=== PATIENT | male | born 1980 | race Caucasian/White ===

== ENCOUNTER 2016-09-13 08:24 | Day surgery (SDC) | payer BC, OTHER ==
[2016-09-12 14:28] VITALS: BMI 26.2
[2016-09-13] MEDS ORDERED: PROPOFOL 20 ML ONE ×3 (08:59→09:00)
[2016-09-13] MEDS ORDERED: LIDOCAINE HCL 2% 100 MG/5 ML DISP.SYRIN ONE (09:04)
[2016-09-13 09:46] VITALS: TEMP 97.5
[2016-09-13 10:18] VITALS: PULSE 62
[2016-09-13 14:44] VITALS: BP 96/64
--- NOTE | 2016-09-19 11:19 | PATH ---
Surgical Pathology Report Patient Name: SRINIVASAN PUCKETT [facility]. Rec. #: [id number] /Age/Gender: 1980 (Age: 35) / M Account: [id number] Location: U-ENDOSCOPY Taken: 09/13/2016 Received: 09/13/2016 Reported: 09/14/2016 Physicians: Judah Fuentes D.O. Specimen(s) Received A: BX RIGHT COLON & CECUM B: BX TRANSVERSE COLON C: BX DESCENDING COLON D: BX SIGMOID COLON E: BX SIGMOID POLYP F: BX RECTUM Clinical History Ulcerative colitis surveillance Ulcerative colitis, hemorrhoids Final Diagnosis A. COLON, CECUM AND RIGHT, BIOPSY: COLONIC MUCOSA WITH MILD CHRONIC COLITIS WITH MILD ARCHITECTURAL DISTORTION. NO EVIDENCE OF GRANULOMATA OR DYSPLASIA. B. COLON, TRANSVERSE, BIOPSY: COLONIC MUCOSA WITH FOCALLY ACTIVE MILD CHRONIC COLITIS WITH MILD ARCHITECTURAL DISTORTION NO EVIDENCE OF GRANULOMATA OR DYSPLASIA. C. COLON, DESCENDING, BIOPSY: COLONIC MUCOSA WITH FOCALLY ACTIVE MILD CHRONIC COLITIS WITH FOCAL CRYPTITIS AND MILD ARCHITECTURAL DISTORTION. NO EVIDENCE OF GRANULOMATA OR DYSPLASIA. D. COLON, SIGMOID, BIOPSY: COLONIC MUCOSA WITH FOCALLY ACTIVE MILD TO MODERATE CHRONIC COLITIS WITH MILD ARCHITECTURAL DISTORTION. NO EVIDENCE OF GRANULOMATA OR DYSPLASIA. E. COLON, SIGMOID, POLYP, BIOPSY: FRAGMENTS OF HYPERPLASTIC POLYP. F. RECTUM, BIOPSY: RECTAL MUCOSA WITH FOCALLY ACTIVE MODERATE CHRONIC PROCTITIS WITH MILD TO MODERATE ARCHITECTURAL DISTORTION. NO EVIDENCE OF GRANULOMATA OR DYSPLASIA. Electronically Signed Kale Mays M.D. Gross Description A. Received in formalin, labeled "biopsy right colon and cecum" are 9 vargas, irregular portions of soft tissue ranging from 0.1-0.5 cm in greatest dimension. The specimens are submitted in toto in one cassette. B. Received in formalin, labeled "biopsy transverse colon" are 8 vargas, irregular portions of soft tissue ranging from 0.1-0.4 cm in greatest dimension. The specimens are submitted in toto in one cassette. C. Received in formalin, labeled "biopsy descending colon" are 8 vargas, irregular portions of soft tissue ranging from 0.1-0.4 cm in greatest dimension. The specimens are submitted in toto in one cassette. D. Received in formalin, labeled "biopsy sigmoid colon" are 12 vargas, irregular portions of soft tissue ranging from 0.1-0.4 cm in greatest dimension. The specimens are submitted in toto in one cassette. E. Received in formalin, labeled "biopsy sigmoid polyp" are 2 vargas, irregular portions of soft tissue measuring 0.2 and 0.3 cm in greatest dimension. The specimens are submitted in toto in one cassette. F. Received in formalin, labeled "biopsy rectum" are 8 vargas, irregular portions of soft tissue ranging from 0.1-0.3 cm in greatest dimension. The specimens are submitted in toto in one cassette. 09/13/2016 [facility]09/13/2016
== END 2016-09-13 10:35 | disposition home or self-care (01) ==
LOC: JASU-ENDO 08:24
PROVIDERS: ATTEND Internal Medicine Gastroenterology
PROC: 0DBN8ZX Excision of Sigmoid Colon, Via Natural or Artificial Opening Endoscopic, Diagnostic (ICD-10-PCS; 2016-09-13)
PROC: 0DBE8ZX Excision of Large Intestine, Via Natural or Artificial Opening Endoscopic, Diagnostic (ICD-10-PCS; principal; 2016-09-13 09:00)
DX: K51.90 Ulcerative colitis, unspecified, without complications (principal); D12.5 Benign neoplasm of sigmoid colon; K64.8 Other hemorrhoids
CPT/HCPCS: 88305-TC

== ENCOUNTER 2018-03-25 12:09 | Day surgery (SDC) | payer BC, OTHER ==
[2018-03-24 16:50] VITALS: BMI 25.1
[2018-03-25 14:08] VITALS: TEMP 98
[2018-03-25 15:03] VITALS: BP 98/62; PULSE 59
[2018-03-25 15:41] LABS: BASO % 0.7 % (0-2.0); EOS % 2.9 % (0-4.5); HEMATOCRIT 40.6 % (35.4-49); HEMOGLOBIN 13.2 GM/dL (11.7-16.9); LYMPH % 30.5 % (8-40); MCH 28.7 pg (25.7-33.7); MCHC 32.4 g/dl (32.0-35.9); MEAN CELL VOLUME 88.4 fl (80-96); MONO % 7.4 % (3.8-10.2); NEUT % 58.5 % (42.8-82.8); PLATELET COUNT 287 K/MM3 (134-434); WHITE BLOOD COUNT 6.8 K/mm3 (4.0-10.0)
[2018-03-25 16:07] LABS: ALBUMIN 3.9 g/dl (3.4-5.0); ALK PHOS 102 U/L (45-117); ANION GAP 6 MMOL/L (8-16); BILIRUBIN,TOTAL 0.5 mg/dL (0.2-1); BLOOD UREA NITROGEN 8 mg/dL (7-18); CALCIUM 8.9 mg/dL (8.5-10.1); CHLORIDE 106 mmol/L (98-107); CO2 28 mmol/L (21-32); GLUCOSE,RANDOM 72 mg/dL (74-106); POTASSIUM 4.2 mmol/L (3.5-5.1); SGOT/AST 15 U/L (15-37); SGPT/ALT 29 U/L (13-61); SODIUM 140 mmol/L (136-145)
[2018-03-27 06:06] LABS: HBSAG SCREEN Negative (Negative); HEP B CORE AB, TOT Negative (Negative)
--- NOTE | 2018-03-27 17:45 | PATH ---
Surgical Pathology Report Patient Name: SRINIVASAN PUCKETT [facility]. Rec. #: [id number] /Age/Gender: 1980 (Age: 37) / M Account: [id number] Location: [facility]-ENDOSCOPY Taken: 03/25/2018 Received: 03/26/2018 Reported: 03/27/2018 Physicians: Judah Fuentes D.O. Specimen(s) Received A: BX CECUM AND RIGHT COLON B: BX TRANSVERSE COLON C: SPLENIC FLEXURE BIOPSY POLYP D: BX DESCENDING COLON PROXIMAL E: BX DESCENDING COLON F: BX DESCENDING COLON G: BX RECTUM Clinical History Ulcerative colitis without complication Postoperative diagnosis: Ulcerative colitis, hemorrhoids Final Diagnosis A. CECUM AND RIGHT COLON, BIOPSY: FRAGMENTS OF COLONIC MUCOSA WITH FOCAL MILD CHRONIC ACTIVE COLITIS AND SMALL LYMPHOID AGGREGATE WITHIN LAMINA PROPRIA. NO GRANULOMA OR DYSPLASIA IDENTIFIED. B. TRANSVERSE COLON, BIOPSY: FRAGMENTS OF COLONIC MUCOSA WITH FOCAL MILD CHRONIC ACTIVE COLITIS, RARE POORLY FORMED NON-NECROTIZING MICROGRANULOMA, AND PROMINENT LYMPHOID AGGREGATES WITHIN LAMINA PROPRIA. NO DYSPLASIA IDENTIFIED. C. COLON, SPLENIC FLEXURE, POLYP, BIOPSY: POLYPOID COLONIC MUCOSA WITH MILD CHRONIC ACTIVE COLITIS. NO GRANULOMA OR DYSPLASIA IDENTIFIED. D. PROXIMAL DESCENDING COLON, BIOPSY: COLONIC MUCOSA WITH MILD CHRONIC ACTIVE COLITIS. NO GRANULOMA OR DYSPLASIA IDENTIFIED. E. DESCENDING COLON, BIOPSY: COLONIC MUCOSA WITH SEVERE CHRONIC ACTIVE COLITIS INCLUDING ACUTE CRYPTITIS AND CRYPT ABSCESS. NO GRANULOMA OR DYSPLASIA IDENTIFIED. F. SIGMOID COLON, BIOPSY: COLONIC MUCOSA WITH SEVERE CHRONIC ACTIVE COLITIS INCLUDING ACUTE CRYPTITIS, CRYPT ABSCESS, AND RARE NON-NECROTIZING MICROGRANULOMA. NO DYSPLASIA IDENTIFIED. AF[employer] AND PAS SPECIAL STAINS ARE NEGATIVE FOR ACID FAST BACILLI AND FUNGAL ORGANISMS. G. RECTUM, BIOPSY: COLONIC MUCOSA WITH MODERATE CHRONIC ACTIVE PROCTITIS INCLUDING ACUTE CRYPTITIS. NO GRANULOMA OR DYSPLASIA IDENTIFIED. Electronically Signed Debbie Valle M.D. Gross Description A. Received in formalin, labeled "biopsy cecum and right colon" are 7 vargas, irregular portions of soft tissue ranging from 0.2-0.4 cm. in greatest dimension. The specimens are submitted in toto in one cassette. B. Received in formalin labeled "biopsy transverse colon," is a 0.9 x 0.8 x 0.1 cm aggregate of vargas soft tissue fragments. The formalin is filtered and the specimen is entirely submitted in one cassette. C. Received in formalin, labeled "biopsy splenic flexure" are 2 vargas, irregular portions of soft tissue measuring 0.2 and 0.6 cm. in greatest dimension. The specimens are submitted in toto in one cassette. D. Received in formalin, labeled "biopsy proximal descending" are 2 vargas, irregular portions of soft tissue measuring 0.3 and 0.4 cm. in greatest dimension. The specimens are submitted in toto in one cassette. E. Received in formalin labeled "biopsy descending colon," is a 0.9 x 0.6 x 0.2 cm aggregate of vargas soft tissue fragments. The formalin is filtered and the specimen is entirely submitted in one cassette. F. Received in formalin labeled "biopsy sigmoid colon," is a 0.9 x 0.6 x 0.1 cm aggregate of vargas soft tissue fragments. The formalin is filtered and the specimen is entirely submitted in one cassette. G. Received in formalin, labeled "biopsy rectum" are 3 vargas, irregular portions of soft tissue ranging from 0.1-0.4 cm. in greatest dimension. The specimens are submitted in toto in one cassette. 03/26/2018 [facility]03/26/2018
== END 2018-03-25 14:59 | disposition home or self-care (01) ==
LOC: JASU-ENDO 12:09
PROVIDERS: ATTEND Internal Medicine Gastroenterology
PROC: 0DBL8ZX Excision of Transverse Colon, Via Natural or Artificial Opening Endoscopic, Diagnostic (ICD-10-PCS; principal; 2018-03-25 12:45)
DX: Z12.11 Encounter for screening for malignant neoplasm of colon (principal); K51.90 Ulcerative colitis, unspecified, without complications; D12.6 Benign neoplasm of colon, unspecified
CPT/HCPCS: 36415; 80053; 85025; 86140; 86480; 86704; 86706; 86708; 86803; 87340; 88305-TC; 88312-TC